=== PATIENT | male | born 1955 | race Caucasian/White ===

== ENCOUNTER → 2020-07-11 | Outpatient (CLI) | payer BC, MEDICARE | END | disposition home or self-care (01) | LOC: CFH 13:38 | PROVIDERS: ATTEND Internal Medicine Cardiovascular Disease | DX: I35.8 Other nonrheumatic aortic valve disorders (principal); R00.1 Bradycardia, unspecified; R01.1 Cardiac murmur, unspecified | CPT/HCPCS: 93306 ==